=== PATIENT | female | born 1975 | race Caucasian/White ===

== ENCOUNTER → 2019-10-08 | Outpatient (CLI) | payer BC, OTHER ==
[~2019-10-08] MED LIST: PRILOSEC20 MG PO
== END | disposition home or self-care (01) ==
LOC: US 10:00
DX: R10.2 Pelvic and perineal pain (principal); Z90.710 Acquired absence of both cervix and uterus

== ENCOUNTER → 2019-10-21 | Outpatient (CLI) | payer BC, OTHER | END | disposition home or self-care (01) | LOC: CT 12:49 | DX: N20.0 Calculus of kidney (principal); K76.89 Other specified diseases of liver; J98.11 Atelectasis; R14.0 Abdominal distension (gaseous); Z90.49 Acquired absence of other specified parts of digestive tract; Z90.710 Acquired absence of both cervix and uterus ==